=== PATIENT | male | born 1980 | race Caucasian/White ===

== ENCOUNTER 2023-01-05 21:24 | Emergency (ER) | payer SELFPAY ==
[2023-01-05 21:28] VITALS: BP 137/89; PULSE 97; RESP 16; TEMP 37.1; O2SAT 96; BMI 28.7
--- NOTE | 2023-01-05 21:38 | ED.GENADULT ---
HPI - General Adult General Chief complaint: General Medical Stated complaint: R testicular pain Time Seen by Provider: 01/05/23 21:35 Source: patient Mode of arrival: ambulatory Limitations: no limitations History of Present Illness HPI narrative: Patient no significant past medical history except for history of torsion when he was young status post surgery no history of kidney stones comes here for 3 days of pain in the right testicle with slight swelling no dysuria no hematuria no flank pain no nausea no vomiting no history of trauma no penile discharge Related Data Previous Rx's Medication Instructions Recorded ibuprofen 600 mg tablet 600 mg PO Q6H PRN fever or pain 01/05/23 #30 tabs Allergies Allergy/AdvReac Type Severity Reaction Status Date / Time No Known Allergies Allergy Verified 01/05/23 21:28 Review of Systems Review of Systems: Yes all other systems are reviewed and are negative [facility] Social History Social History Advance Directives: No Advance Directives Information Provided: Yes Physical Exam ED Vital Signs: Vital Signs - 24 hr 01/05/23 21:28 01/05/23 22:17 Temperature 98.8 F 98.2 F Pulse Rate 97 80 Respiratory Rate 16 18 Blood Pressure 137/89 138/81 Pulse Oximetry 96 100 Oxygen Delivery Method Room Air Room Air BMI result Body Mass Index 28.7 Appearance: Alert. Oriented X3. No acute distress. CVS: Normal heart rate and rhythm. Pulses normal. Respiratory: No respiratory distress. Equal air entry bilateral, Abdomen: Soft and nontender. Bowel sounds are present, no mass palpable, no CVA tenderness Skin: Skin warm and dry. Normal skin color. Normal skin turgor. Extremities: No lower extremity edema. No calf tenderness Neuro: Oriented X 3. Male genitals images: 1. Soft tissue swelling the right scrotal area no hernia palpable normal testicles no penile discharge Medical Decision Making Medical Decision Making MDM Narrative: Patient with fat containing small hernia on the right side does have chronic hematuria in the past no history of kidney stones Differential Diagnosis Epididymitis/hernia/hydrocele Lab Data [facility] Lab Attestation statement: I reviewed the patient's lab results. Labs: Lab Results 01/05/23 Range/Units 22:22 Urine Color Yellow Urine Appearance Clear Urine pH 6.5 (5.0-9.0) Ur Specific [place] 1.020 (1.005-1.025) Urine Protein Trace (Neg-Trace) mg/dL Urine Glucose (UA) Negative (Negative) mg/dL Urine Ketones Trace (Negative) mg/dL Urine Blood Moderate (2+) H (Negative) Urine Nitrite Negative (Negative) Ur Leukocyte Esterase Negative (Negative) Urine RBC >20 H (0-2) /HPF Urine WBC 0-5 (0-5) /HPF Ur Squamous Epith Cells 0-2 (0-2) /HPF Urine Bacteria None Seen (None Seen) Hyaline Casts 0-2 (0-2) /LPF Radiology Impression Discussion of test interpretation with radiology: I have reviewed the radiologist's reading. Radiologist Impression: US/US scrotum IMPRESSION: 1.? No testicular torsion or mass. 2.? Possible fat-containing right inguinal hernia. 3. 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 In the absence of any other risk factors for testicular cancer (e.g., personal history of testicular cancer, a father or brother with testicular cancer, history of cryptorchidism or maldescent, testicular atrophy, or other risk factors), no further imaging or biochemical follow-up is necessary; all that is recommended is routine monthly testicular self-examination. However, if the patient has risk factors for testicular cancer, referral to a urologist for evaluation and determination of an optimal follow-up strategy is recommended. Discharge Plan Discharge Clinical Impression: Direct inguinal hernia of right side Patient Disposition: Home, Self-Care Instructions: Inguinal Hernia (ED) Additional Instructions: Avoid standing for long time Do not strain Follow-up with surgery if swelling gets worse Ibuprofen for pain Prescriptions: New ibuprofen 600 mg tablet 600 mg PO Q6H PRN (Reason: fever or pain) Qty: 30 0RF Referrals: Von Sy MD [Physician] - 2 weeks Matthew Granger MD [Physician] - 2 weeks
[2023-01-05 22:17] VITALS: BP 138/81; PULSE 80; RESP 18; TEMP 36.8; O2SAT 100
--- NOTE | 2023-01-05 22:18 | MHC.EDTECH ---
This tech assumed care of pt, vitals taken and [facility] and probtec urine was collected and sent to lab. Pt is laying in stretcher at this time and call almonte is within reach.
--- NOTE | 2023-01-05 23:34 | PC.NURSE ---
pt medicated according to mar. pt provided with work note. vss. pt ambulatory at discharge. pt calm and cooperative. room service associate utilized. pt provided with discharge packet. pt verbalized understanding of discharge plan
== END 2023-01-05 23:36 | disposition home or self-care (01) ==
PROVIDERS: Emergency Provider Internal Medicine
DX: K40.90 Unilateral inguinal hernia, without obstruction or gangrene, not specified as recurrent (principal); R31.9 Hematuria, unspecified; N50.811 Right testicular pain; N50.89 Other specified disorders of the male genital organs
CPT/HCPCS: 0353U; 76870; 81001; 99284

== ENCOUNTER 2023-04-10 15:21 | Emergency (ER) | payer OTHER, SELFPAY ==
[2023-04-10 15:30] VITALS: BP 147/91; PULSE 72; RESP 18; TEMP 37.2; O2SAT 99; BMI 29.4
--- NOTE | 2023-04-10 16:53 | ED.EXTPRO ---
HPI - Extremity Problem General Chief complaint: Extremity Injury, Upper Stated complaint: Shoulder pain Time Seen by Provider: 04/10/23 15:50 Source: patient and credit administrator Mode of arrival: ambulatory Limitations: language barrier History of Present Illness HPI Narrative: 43 yo male with h/o of HTN here with complaints of right shoulder pain x 1 month With no known injury or trauma. Patient was seen at 2 weeks and was prescribed ibuprofen but is continuing to have symptoms. He did call his doctor but was unable to get in with them to be seen. 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 He denies any weakness, numbness or tingling of extremity. Related Data Previous Rx's Medication Instructions Recorded ibuprofen 600 mg tablet 600 mg PO Q6H PRN fever or pain 01/05/23 #30 tabs cyclobenzaprine 10 mg tablet 10 mg PO TID PRN muscle spasm #15 04/10/23 tabs naproxen 500 mg tablet 500 mg PO BID PRN pain #30 tabs 04/10/23 Allergies Allergy/AdvReac Type Severity Reaction Status Date / Time No Known Allergies Allergy Verified 01/05/23 21:28 Review of Systems Review of Systems: Yes all other systems are reviewed and are negative Constitutional: Constitutional: Reports no additional constitutional complaints, Denies body ache(s), Denies chills, Denies fever(s), Denies headache(s) and Denies weakness Eyes: Eyes: Reports no additional eye complaints and Denies change in vision ENT: Reports system reviewed and no additional complaints, except as documented, Denies dizziness, Denies headache(s), Denies nasal congestion, Denies nasal discharge and Denies neck pain Cardiovascular: Cardiovascular: Reports no additional cardiovascular complaints, Denies chest pain, Denies leg edema and Denies dyspnea Respiratory: Respiratory: Reports no additional respiratory complaints, Denies cough and Denies dyspnea Gastrointestinal: Gastrointestinal: Reports no additional gastrointestinal complaints, Denies abdominal pain, Denies diarrhea, Denies nausea and Denies vomiting Genitourinary: Genitourinary: Denies urinary incontinence Musculoskeletal: Musculoskeletal: Reports no additional musculoskeletal complaints, Denies back pain, Reports arthralgias, Denies joint swelling, Denies neck pain, Denies numbness and Denies tingling Integumentary/Breasts: Skin/Breast: Reports system reviewed and no additional complaints, except as docu and Denies rash Neurologic: Reports system reviewed and no additional complaints, except as documented, Denies Abnormal speech present, Denies dizziness, Denies headache(s), Denies numbness, Denies tingling and Denies weakness PMFSH Past Medical History Attestation statement: The following information was validated with the patient. Source: old records reviewed and nursing notes reviewed Social History Social History Advance Directives: No Advance Directives Information Provided: No Physical Exam Vital Signs: Vital Signs: Last Vital Signs Temp 99.0 F 04/10/23 15:30 Pulse 72 04/10/23 15:30 Resp 18 04/10/23 15:30 BP 147/91 H 04/10/23 15:30 Pulse Ox 99 04/10/23 15:30 O2 Del Method Room Air 04/10/23 15:30 BMI result Body Mass Index 29.4 Const: General: cooperative, healthy appearing, comfortable and no acute distress Orientation/consciousness: patient oriented x3 Limitations: no limitations HEENT: Head: Yes normal to inspection Ears: hearing grossly normal bilaterally General nose exam: Normal external nose present Face and sinus: Yes normal facial exam Mouth: Normal oral and palatal mucosa present Throat: Yes posterior oropharynx normal Eyes: General: appearance normal, both eyes and all related structures Pupils: Equal, round and reactive pupils present Neck: Neck: Yes normal visual inspection Chest: Chest palpation & inspection: normal inspection of the chest Resp: Effort & Inspection: normal respiratory effort Auscultation: clear to auscultation bilaterally Cardio: Rate: regular rate Rhythm: regular rhythm Peripheral pulses: Peripheral pulses 2+ throughout GI: Inspection: Yes normal to inspection Palpation (GI): Soft to palpation and nontender Auscultation: normal bowel sounds Back/Spine/Pelvis: Thoracic/Lumbar Spine: thoracic and lumbar spine normal to inspection Skin: General skin exam: no rashes or lesions noted Neuro: General: patient oriented x3, no focal motor deficits and normal sensation to monofilament Cranial nerves: Yes Equal, round and reactive pupils present Cognition (Neuro): normal cognition Speech: No Abnormal speech present Gait exam (Neuro): Normal gait present Motor exam (neuro): 5/5 motor strength present throughout Extrem: Other: There is tenderness to the right anterior and superior shoulder which is worsened with abduction with full active and passive range of motion. There is no appreciable weakness. There are normal radial and ulnar pulses. Normal distal sensation. Normal range of motion of the distal joints. General: Yes normal to inspection Medical Decision Making Medical Decision Making MDM Narrative: 43 yo male with h/o of HTN here with complaints of right shoulder pain x 1 month With no known injury or trauma. Patient was seen at 2 weeks and was prescribed ibuprofen but is continuing to have symptoms. He did call his doctor but was unable to get in with them to be seen. 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 He denies any weakness, numbness or tingling of extremity. There is tenderness to the right anterior and superior shoulder which is worsened with abduction with full active and passive range of motion. There is no appreciable weakness. There are normal radial and ulnar pulses. Normal distal sensation. Normal range of motion of the distal joints. Plan to obtain x-rays Differential Diagnosis Differential Diagnoses: The differential diagnosis associated with the presentation includes Strain, sprain low concern for vascular injury, dislocation or fracture Admission/Observation Consideration of admission/observation: Escalation of care including admission/observation considered low concern for vascular injury, dislocation or fracture to suggest need for advanced imaging, emergent orthopedic consultation Independent Interpretation I performed an independent interpretation of an: Plain X-Ray Interpretation: I independently reviewed the x-ray and agree with radiology report Radiology Impression Discussion of test interpretation with radiology: I have reviewed the radiologist's reading. Radiologist Impression: [place] [id number] XRay Report Signed Patient: Cirilo Taylor MR#: [id number] : 1980 Acct:[id number] Age/Sex: 43 / M ADM Date: 04/10/23 Loc: .ED Attending Dr: Ordering Physician: Mildred Dick NP Date of Service: 04/10/23 Procedure(s): XR shoulder RT min 2V Accession Number(s): [id number] cc: Tracy Fischer MD; Mildred Dick NP~ EXAMINATION: XR SHOULDER, RIGHT CLINICAL INFORMATION: Pain. COMPARISON: None available. TECHNIQUE: AP external rotation, Grashey, scapular Y, and axillary views of the right shoulder. FINDINGS: The bones and soft tissues are normal. No fracture. Glenohumeral and acromioclavicular alignment is anatomic with normal joint space. No abnormal soft tissue calcifications. XR/XR shoulder RT min 2V IMPRESSION: Unremarkable right shoulder. Tests considered The following testing was considered but not selected: low concern for vascular injury, dislocation or fracture to suggest need for advanced imaging, Prescription Management I considered prescription management with: Pain Medication Chronic Conditions Patient?s care impacted by: Hypertension Discharge Plan Discharge Clinical Impression: Right shoulder strain Patient Disposition: Home, Self-Care Instructions: Muscle Strain (ED) Additional Instructions: Heat or ice. Gentle stretching. follow-up with your primary care doctor for any continued symptoms. Calor o hielo. Estiramiento suave. Darline un seguimiento con drake m?dico de atenci?n primaria si persisten los s?ntomas. Prescriptions: New naproxen 500 mg tablet 500 mg PO BID PRN (Reason: pain) Qty: 30 0RF cyclobenzaprine 10 mg tablet 10 mg PO TID PRN (Reason: muscle spasm) Qty: 15 0RF No Action ibuprofen 600 mg tablet 600 mg PO Q6H PRN (Reason: fever or pain) Qty: 30 0RF Referrals: Tracy Fischer MD [Primary Care Provider] - 1 week Stand Alone Forms: Work/School Release Print Language: Wallisian
== END 2023-04-10 17:56 | disposition home or self-care (01) ==
PROVIDERS: Emergency Provider Emergency Medicine; PCP Family Medicine
DX: S46.911A Strain of unspecified muscle, fascia and tendon at shoulder and upper arm level, right arm, initial encounter (principal); M25.511 Pain in right shoulder; I10 Essential (primary) hypertension; X58.XXXA Exposure to other specified factors, initial encounter; Y93.9 Activity, unspecified; Y92.9 Unspecified place or not applicable; Y99.9 Unspecified external cause status; Z79.899 Other long term (current) drug therapy
CPT/HCPCS: 73030; 99282; 99283

== ENCOUNTER 2024-12-09 20:35 | Emergency (ER) | payer OTHER, SELFPAY ==
--- NOTE | ~2024-12-09 | CT_ITS ---
CLINICAL HISTORY: headache with elevated bp CT head without contrast Comparison: None Findings: No intracranial mass, midline shift, hydrocephalus, or acute hemorrhage. Empty sella present. Mild, lobulated mucosal thickening partially visualized at the inferior aspect of the left maxillary sinus. There is complete opacification of the visualized right maxillary sinus. The bilateral mastoid air cells appear clear. No acute skull fracture. Impression: 1. No acute intracranial abnormality. No acute intracranial hemorrhage. 2. Complete opacification of the visualized right maxillary sinus. This is nonspecific. A mucocele is not excluded. This document has been electronically signed by: Milton Mccullough MD on 12/10/2024 00:53:39
--- NOTE | 2024-12-09 20:42 | ED.HA ---
HPI - Headache General Chief Complaint: Headache Stated Complaint: headache Time Seen by Provider: 12/09/24 22:24 Source: patient Mode of arrival: ambulatory Limitations: no limitations History of Present Illness ED Provider: HPI Narrative: Patient complaining of headache on the right side with intermittent nausea and dizziness checked his blood pressure was elevated to 160-170 patient never had a CT scan in the past never had a headache before complaining of slight nausea and slight light sensitivity Related Data Previous Rx's ?Medication ?Instructions ?Recorded ibuprofen 600 mg tablet 600 mg PO Q6H PRN fever or pain 01/05/23 #30 tabs cyclobenzaprine 10 mg tablet 10 mg PO TID PRN muscle spasm #15 04/10/23 tabs naproxen 500 mg tablet 500 mg PO BID PRN pain #30 tabs 04/10/23 [id number] 1 tab PO Q6H PRN haeadace #20 tabs 12/10/24 50 mg-325 mg-40 mg tablet Allergies Allergy/AdvReac Type Severity Reaction Status Date / Time No Known Allergies Allergy Verified 12/09/24 20:43 Review of Systems Review of Systems: Yes all other systems are reviewed and are negative Physical Exam Vital Signs: Vital Signs: Last Vital Signs Temp 97.9 F 12/10/24 01:33 Pulse 69 12/10/24 01:33 Resp 16 12/10/24 01:33 BP 111/59 L 12/10/24 01:33 Pulse Ox 95 12/10/24 01:33 O2 Del Method Room Air 12/10/24 01:33 BMI result Body Mass Index 30.6 Appearance: Alert. Oriented X3. No acute distress. Eyes: PERRLA, No Nystagmus ENT: Pharynx normal. Oral Mucosa moist Neck: Normal inspection. Neck supple. CVS: Normal heart rate and rhythm. Pulses normal. Respiratory: No respiratory distress. Equal air entry bilateral, no wheezing/rales/rhonchi Abdomen: Soft and nontender. Bowel sounds are present, no mass palpable, no CVA tenderness Skin: Skin warm and dry. Normal skin color. Normal skin turgor. Extremities: No lower extremity edema. No calf tenderness Neuro: Oriented X 3. No motor deficit. No sensory deficit.No cerebellar signs , cranial nerves II-XII intact Course Course Course Narrative: This is a Rapid Medical Exam performed in triage by Claritza Rice PA-C. Full HPI, ROS and PE to be performed by primary ED provider. 44 yo Latvian speaking M presenting to the ED c/o R temporal/eye DOMINGUEZ x 1 week with nausea & dizziness. denies visual changes, vomiting. No relief with OTC meds. Last took Tylenol around 1600. denies AC use or similar sx in the past PE: ambulating w/steady gait, no focal deficits Plan: SARs, labs Medications Administered Discontinued Medications Generic Name Dose Route Start Last Admin Trade Name Freq PRN Reason Stop Dose Admin Acetaminophen/Butalbital/Caffeine 1 tab 12/09/24 22:48 12/09/24 22:59 Butalb/Acetamin/Caff 50/325/40 Tablet PO 12/09/24 22:49 1 tab ONCE ONE Administration Ketorolac Tromethamine 60 mg 12/10/24 00:29 12/10/24 01:08 Ketorolac Tromethamine 60 Mg/2 Ml Vial IM 12/10/24 00:30 60 mg ONCE ONE Administration Medical Decision Making Medical Decision Making [facility] Narrative: Patient clinically with migraine headache CT scan of the head is negative for acute will discharge patient home on [facility] Differential Diagnosis Differential Diagnoses: The differential diagnosis associated with the presentation includes Lab Data [facility] Lab Attestation statement: I reviewed the patient's lab results. 12/09/24 21:00 12/09/24 21:00 Labs: Lab Results 12/09/24 Range/Units 21:00 WBC 11.7 H (4.8-10.8) X10*3/uL RBC 4.85 (4.60-5.80) X10*6/uL Hgb 14.5 (14.0-18.0) g/dl Hct 42.3 (42.0-52.0) % MCV 87.2 (80.0-98.0) fL MCH 29.9 (27.0-33.0) pg MCHC 34.3 (31.0-36.0) g/dl RDW 13.5 (11.0-16.0) % Plt Count 357 (160-400) X10*3/uL MPV 10.0 (9.4-12.4) fL Immature Gran % (Auto) 0.3 (0.0-0.4) % Neut % (Auto) 57.5 (45-73) % Lymph % (Auto) 31.6 (20-40) % Teller % (Auto) 9.4 (2-11) % Eos % (Auto) 0.9 (0-4) % Baso % (Auto) 0.3 (0-2) % Lymph # (Auto) 3.7 (1.2-4.9) X10*3/uL Teller # (Auto) 1.1 (0.1-1.2) X10*3/uL Eos # (Auto) 0.1 (0.0-0.4) X10*3/uL Baso # (Auto) 0.0 (0.0-0.2) X10*3/uL Abs Immat Gran (auto) 0.03 (0.00-0.03) X10*3/uL Absolute Neuts (auto) 6.7 (2.0-8.3) x10*3/uL Absolute Nucleated RBC 0.000 (0.0-0.012) X10*3/uL Nucleated RBC % (auto) 0.0 (0.0-0.2) /100WBC Sodium 142 (135-145) mmol/L Potassium 3.7 (3.3-5.1) mmol/L Chloride 104 (96-108) mmol/L Carbon Dioxide 30 H (22-29) mmol/L Anion Gap 12 (12-20) BUN 18 H (9-16) mg/dL Creatinine 1.50 H (0.5-1.4) mg/dL Estim Creat Clear Calc 63.2 Estimated GFR 50 Random Glucose 93 (60-115) mg/dL Calcium 9.4 (8.4-10.2) mg/dL Influenza Type A (PCR) NEGATIVE (Negative) Influenza Type B (PCR) NEGATIVE (Negative) RSV RNA Qual (PCR) NEGATIVE (Negative) SARS-CoV-2 RNA (RT-PCR) NEGATIVE (Negative) Independent Interpretation I performed an independent interpretation of an: CT Scan Radiology Impression Discussion of test interpretation with radiology: I have reviewed the radiologist's reading. Discharge Plan Discharge Clinical Impression: Migraine Patient Disposition: Home, Self-Care Instructions: Migraine Headache (ED) Additional Instructions: Your headache is likely from migraine headache Take Fioricet 1 tablet every 6 hours as needed for headache Follow with your PCP Prescriptions: New symyvobthi-mhpshcgyinpea-dlhj 50-325-40 mg tablet 1 tab PO Q6H PRN (Reason: haeadace) Qty: 20 0RF No Action ibuprofen 600 mg tablet 600 mg PO Q6H PRN (Reason: fever or pain) Qty: 30 0RF naproxen 500 mg tablet 500 mg PO BID PRN (Reason: pain) Qty: 30 0RF cyclobenzaprine 10 mg tablet 10 mg PO TID PRN (Reason: muscle spasm) Qty: 15 0RF Interventions: ED Discharge Assessment Last Done: 12/10/24 01:33 Discharge Date/Time: 12/10/24 01:34 Print Language: Latvian
[2024-12-09 20:43] VITALS: BP 141/88; PULSE 79; RESP 18; TEMP 36.9; O2SAT 95; BMI 30.6
[2024-12-09 21:05] LABS: Basophils Percent Auto 0.3 % (0-2); Eosinophils Absolute Auto 0.1 X10*3/uL (0.0-0.4); Eosinophils Percent Auto 0.9 % (0-4); Hematocrit 42.3 % (42.0-52.0); Hemoglobin 14.5 g/dl (14.0-18.0); Imm Gran Abs Auto 0.03 X10*3/uL (0.00-0.03); Imm Gran Pct Auto 0.3 % (0.0-0.4); Lymphocytes Absolute Auto 3.7 X10*3/uL (1.2-4.9); Lymphocytes Percent Auto 31.6 % (20-40); MANUAL DIFF FLAG NO; Mean Corpuscular HGB Conc 34.3 g/dl (31.0-36.0); Mean Corpuscular Hemoglobin 29.9 pg (27.0-33.0); Mean Corpuscular Volume 87.2 fL (80.0-98.0); Monocytes Absolute Auto 1.1 X10*3/uL (0.1-1.2); Monocytes Percent Auto 9.4 % (2-11); Neutrophils Absolute Auto 6.7 x10*3/uL (2.0-8.3); Neutrophils Percent Auto 57.5 % (45-73); Platelet Count 357 X10*3/uL (160-400); Red Blood Count 4.85 X10*6/uL (4.60-5.80); Red Cell Distribution Width 13.5 % (11.0-16.0); White Blood Count 11.7 X10*3/uL (4.8-10.8)
[2024-12-09 21:17] LABS: Anion Gap 12 (12-20); Blood Urea Nitrogen 18 mg/dL (9-16); Calcium 9.4 mg/dL (8.4-10.2); Carbon Dioxide 30 mmol/L (22-29); Chloride 104 mmol/L (96-108); Creatinine Clr Calc Pharmacy 63.2; Estimated Glomerular Filt Rate 50; Glucose Random 93 mg/dL (60-115); Potassium 3.7 mmol/L (3.3-5.1); Sodium 142 mmol/L (135-145)
[2024-12-09 21:41] LABS: Influenza A PCR NEGATIVE (Negative); Influenza B PCR NEGATIVE (Negative); Resp Syncy Virus RNA Qual PCR NEGATIVE (Negative); SARS COV2 PCR INHOUSE NEGATIVE (Negative)
[2024-12-09] MEDS: Butalb/Acetamin/Caff 50/325/40 TABLET 1 TAB PO (22:59)
[2024-12-10] MEDS: Ketorolac Tromethamine 60 MG/2 ML VIAL IM (01:08)
[2024-12-10 01:10] VITALS: BP 111/59; PULSE 69; RESP 16; O2SAT 95
[2024-12-10 01:33] VITALS: BP 111/59; PULSE 69; RESP 16; TEMP 36.6; O2SAT 95
== END 2024-12-10 01:34 | disposition home or self-care (01) ==
PROVIDERS: Physician Assistant; Emergency Provider Internal Medicine; PCP Internal Medicine
DX: G43.909 Migraine, unspecified, not intractable, without status migrainosus (principal); Z03.818 Encounter for observation for suspected exposure to other biological agents ruled out; R42 Dizziness and giddiness
CPT/HCPCS: 0241U; 70450; 80048; 85025; 96372; 99284; J1885

== ENCOUNTER → 2024-12-09 22:48 | Outpatient (BNV) | payer OTHER, SELFPAY | PROVIDERS: Emergency Provider Internal Medicine; PCP Internal Medicine; Visit Provider Radiology Diagnostic Radiology | DX: J01.00 Acute maxillary sinusitis, unspecified (principal) | CPT/HCPCS: 70450 ==